=== PATIENT | male | born 2000 | race African-American/Black ===

== ENCOUNTER 2021-02-18 02:59 | Emergency (ER) | payer OTHER, BC ==
[~2021-02-18] VITALS: Ht 177.8 cm; Wt 86.2 kg
[2021-02-18] MEDS ORDERED: EMERGEN-C 1,01000 MG PO (03:07)
[2021-02-18] MEDS ORDERED: MEN UNDER 50 M1 EACH PO (03:07)
[2021-02-18 03:37] VITALS: BP 124/66
== END 2021-02-18 03:37 | disposition home or self-care (01) ==
LOC: ER 02:59
DX: M25.512 Pain in left shoulder (principal); J45.909 Unspecified asthma, uncomplicated; Z79.899 Other long term (current) drug therapy; Z88.8 Allergy status to other drugs, medicaments and biological substances; V89.2XXD Person injured in unspecified motor-vehicle accident, traffic, subsequent encounter